=== PATIENT | male | born 1980 | race Caucasian/White ===

== ENCOUNTER 2019-12-22 03:50 | Emergency (ER) | payer BC ==
[~2019-12-22] VITALS: Ht 180.3 cm; Wt 113.6 kg
[2019-12-22 04:27] LABS: BASO # 0.1 (0.0-0.2); BASO % 0.4 % (0.0-2.0); EOS % 0.2 % (0-4.0); GRAN # 11.8 (1.4-6.5); GRAN % 89.4 % (42.2-75.2); LYMPH # 0.5 (1.2-3.4); LYMPH % 3.9 % (20.0-51.0); MEAN CELL VOLUME 87 fl (80.0-100.0); MEAN CORPUSCULAR HGB CONC 36 g/dl (33.0-37.0); MEAN PLATELET VOLUME 9.3 fl (7.4-10.4); MONO # 0.8 (0.1-0.6); MONO % 5.8 % (1.7-9.3); PLATELET COUNT 238 K/mm3 (130-400); RED BLOOD COUNT 5.99 M/mm3 (4.20-5.60); REDCELL DISTRIBUTION WIDTH-CV 12.4 % (11.5-14.5)
[2019-12-22 04:31] LABS: HEMATOCRIT 52.3 % (42.0-52.0); HEMOGLOBIN 18.6 g/dl (13.5-18.0); MEAN CORPUSCULAR HEMOGLOBIN 31 pg (27.0-31.0)
[2019-12-22 04:36] LABS: BILIRUBIN,TOTAL 1.3 mg/dL (0.0-1.0); CALCIUM 9.2 mg/dL (8.4-10.2); CREATININE, serum 1.18 (0.66-1.25); POTASSIUM 4.1 mmol/L (3.4-5.0); TOTAL PROTEIN 8.1 gm/dL (6.4-8.2)
[2019-12-22 06:02] LABS: PROTHROMBIN TIME 12.2 SECONDS (9.7-12.8)
[2019-12-22] MEDS ORDERED: DDAVP TAB0.2 MG PO (06:13)
[2019-12-22] MEDS ORDERED: PROTONIX 40MG T40 MG PO (06:14)
[2019-12-22] MEDS ORDERED: PRINIVIL5 MG PO (06:14)
[2019-12-22] MEDS ORDERED: RT ADVAIR 528 DISKUS IH (06:14)
[2019-12-22] MEDS ORDERED: ZOFRAN ODT4 MG SL (07:35)
[2019-12-22] MEDS ORDERED: PHENERGAN25 MG RC (07:35)
[2019-12-22 08:04] VITALS: BP 142/87; PULSE 100; TEMP 98
== END 2019-12-22 08:01 | disposition home or self-care (01) ==
LOC: COL.ER 03:50
PROVIDERS: Emergency Medicine
DX: K52.9 Noninfective gastroenteritis and colitis, unspecified (principal); I10 Essential (primary) hypertension; Z79.51 Long term (current) use of inhaled steroids; Z90.89 Acquired absence of other organs
CPT/HCPCS: J2405; J2765; J3010; J7030; Q9967